=== PATIENT | female | born 1995 ===

== ENCOUNTER 2016-11-05 09:44 | Inpatient (IN) | payer MEDICAID, OTHER ==
[~2016-11-05] VITALS: Ht 152.4 cm; Wt 69.0 kg
[2016-11-05] VITALS (26 sets, daily range): BP systolic 104–153; BP diastolic 53–78
[2016-11-05] MEDS ORDERED: LR 1,000 ML IV SCH (09:55)
[2016-11-05] MEDS ORDERED: LR 1,000 ML IV ONE (10:30)
[2016-11-05] MEDS ORDERED: PRENTAB9 PO (10:32)
[2016-11-05] MEDS ORDERED: IRON50TA PO (10:32)
[2016-11-05 11:27] LABS: MEAN CORPUSCULAR HEMOGLOBIN 32.4 pg (27.0-33.0); MEAN CORPUSCULAR HGB CONC 34.4 g/dl (32.0-36.5); MEAN CORPUSCULAR VOLUME 94.2 fl (80.0-96.0); WHITE BLOOD COUNT 14.5 K/mm3 (4.0-10.0)
[2016-11-05] MEDS ORDERED: FENTANYL 2MCG/ML ROPIVACAINE 0.2% IN 0.9% NACL 200ML IVBAG As Ordered ONE (11:46)
[2016-11-05] MEDS ORDERED: EPIDURAL/PCA KEYS XX PRN (12:45)
[2016-11-05] MEDS ORDERED: diphenhydrAMINE INJ 50MG/ML VIAL (J1200) IV PRN (12:45)
[2016-11-05] MEDS ORDERED: ePHEDrine SULFATE 25 MG/5 ML(5MG/ML) SYRINGE IV PRN (12:45)
[2016-11-05] MEDS ORDERED: LACTATED RINGER'S 1000 ML IV PRN (12:45)
[2016-11-05] MEDS ORDERED: REFRIGERATOR IV KEYS XX PRN (12:45)
[2016-11-05] MEDS ORDERED: ONDANSETRON 4MG/2ML VIAL (J2405) IV PRN (12:45)
[2016-11-05] MEDS ORDERED: FENTANYL/ROPIVACAINE/NACL BAG 200 ML EPIDURAL SCH (12:45)
[2016-11-05] MEDS ORDERED: NALOXONE INJ 0.4 MG/1 ML VIAL (J2310) IV PRN (12:45)
[2016-11-05] MEDS ORDERED: EPIDURAL COMMENT XX SCH (12:45)
[2016-11-05] MEDS ORDERED: ACETAMINOPHEN 500 MG TAB PO ONE (19:00)
[2016-11-05] MEDS ORDERED: OXYTOCIN 30 UNITS IN 0.9% NaCl 500ML IV BAG (J2590) As Ordered ONE (19:15)
[2016-11-05] MEDS ORDERED: UNASYN 3 GM VIAL As Ordered ONE (20:21)
[2016-11-05 20:53] LABS: CORD GAS ABE A -7.8; CORD GAS HCO3 A 19.1 MEQ/L; CORD GAS O2 SAT A 56.6 %; CORD GAS PCO2 A 43.6 mmHg; CORD GAS PH A 7.259 UNITS; CORD GAS PO2 A 25.8 mmHg; CORD GAS SBC A 17.4 MEQ/L; CORD GAS TCO2 A 20.4 MEQ/L
[2016-11-05 20:56] LABS: CORD GAS ABE V -8.6; CORD GAS HCO3 V 19.7 MEQ/L; CORD GAS O2 SAT V 57.4 %; CORD GAS PCO2 V 51.1 mmHg; CORD GAS PH V 7.205 UNITS; CORD GAS PO2 V 27.4 mmHg; CORD GAS SBC V 16.8 MEQ/L; CORD GAS TCO2 V 21.3 MEQ/L
[2016-11-05] MEDS ORDERED: OXYTOCIN DRIP 30 UNITS in APPROPRIATE DILUENT 1 EA IV SCH (21:13)
[2016-11-05] MEDS ORDERED: ANUSOL HC CREAM 30GM TOP PRN (21:15)
[2016-11-05] MEDS ORDERED: METHYLERGONOVINE MALEATE 0.2 MG TAB PO PRN (21:15)
[2016-11-05] MEDS ORDERED: MEASLES,MUMPS,RUBELLA VACCINE INJ (MMR-II) (90707) SC SCH (21:15)
[2016-11-05] MEDS ORDERED: MOM 30ML SUSPENSION UDC PO PRN (21:15)
[2016-11-05] MEDS ORDERED: DIBUCAINE 1% OINTMENT 30GM TOP PRN (21:15)
[2016-11-05] MEDS ORDERED: ACETAMINOPHEN 500 MG TAB PO PRN (21:15)
[2016-11-05] MEDS ORDERED: RHOGAM 300 MCG (1500 IU) INJ (J2790) IM SCH (21:15)
[2016-11-05] MEDS ORDERED: DOCUSATE SODIUM 100 MG CAP PO PRN (21:15)
[2016-11-05] MEDS: IBUPROFEN 800 MG TAB PO PRN (22:21)
--- NOTE | 2016-11-05 22:55 | HPE ---
DATE OF ADMISSION: 11/05/2016 CHIEF COMPLAINT: Active labor. HISTORY OF THE PRESENT ILLNESS: The patient is a 21-year-old 1, para 0-0-0-1 at 39 weeks 6 days gestation with an estimated date of confinement of by last menstrual period of 01/31/2016. She presents from the office complaining of contractions that are about 1 to 2 minutes apart and very painful. They last 45 seconds to 1 minute, and she has been jr for 5 or 6 hours. She denies rupture of membranes. She states she is not really feeling the baby move. She admits to a little mucousy, bloody discharge. Last intercourse was a week ago. LABS: Blood type A negative. Blood pressures in the office have been ranging from 122 to 124 systolic over 68 to 70 diastolic. Total weight gain 46 pounds. GBS negative. Rubella immune. HIV negative. She has never had a Pap smear. Gonorrhea and chlamydia are both negative. Hepatitis B antigen negative. Hepatitis C nonreactive. VDRL nonreactive. 1-hour glucose tolerance test was 162, 3-hour glucose tolerance test showed 87/169/144/110. Obstetrical (OB) ultrasound from 10/22/2016 shows baby vertex. Previous ultrasound showed an anterior placenta with a male fetus. PAST OB HISTORY: None. PAST MEDICAL HISTORY: None. PAST SURGICAL HISTORY: None. MEDICATIONS: She is taking vitamins and iron supplements. ALLERGIES: None. SOCIAL HISTORY: The patient is single. Denies tobacco, alcohol or drug use. EXAM: Blood pressure 117/74. Abdomen: Baby is vertex. Vaginal Exam: She is 5 cm dilated, 100% effaced at -2 station. In office, she was 4 cm dilated, 100% effaced at -2 station. monitor shows 145 beats per minute with moderate variability and accelerations without decelerations. ASSESSMENT AND PLAN: 1. Intrauterine at 39 weeks and 6 days (39 and 6) in active labor. 2. Group B streptococcus (GBS) negative. 3. Anticipate spontaneous vaginal delivery. My preceptor for this patient encounter was Dr. Nona Redd. The preceptor was physically present in the building during the encounter and was fully available. As needed, all aspects of the patient interview, examination, medical decision making process, and medical care plan development were reviewed and approved by the preceptor. The preceptor is aware and concurs with the plan as stated in the body of this note and will attest to such by his/her cosignature.
[2016-11-06] MEDS ORDERED: miSOPROStol 200 MCG TAB (S0191) PR ONE
--- NOTE | 2016-11-06 00:09 | DN ---
DATE: 11/05/2016 TIME OF DELIVERY: 2038 hours. GENDER: Male. SCORES: 7 and 8. WEIGHT: 3128 grams or 6 pounds 14 ounces. LACERATIONS: None. ANESTHESIA: Epidural. COUNTS: Five laparotomy sponges accounted for prior to and after delivery. Two sharps removed from the delivery field. CORD GASES: 7.25, 7.20 with base excesses of -7.8 and -8.6 respectively. DELIVERY NOTE: On 11/05/2016, at 2038 hours, Ms. Rivers, a 21-year-old 1, para 1 had a spontaneous vaginal delivery of a liveborn male , scores 7 and 8, weight was 3128 grams or 6 pounds 14 ounces. Head was delivered BEAU over intact perineum, followed by delivery of left anterior shoulder and right posterior shoulder. Upon delivery of the corpus, terminal ileum was noted with thickly stained meconium amniotic fluid. Cord was clamped times two and was cut by the father of the baby. The baby was then taken over to the warmer for further assessment. Cord gases were then obtained. Placenta was then drained and delivered grossly intact. A premixed bag of 500 mL of saline with 30 units of Pitocin was then bolused along with uterine massage until the uterus was firm. An additional 1000 mcg of Misoprostol was placed rectally for uterine hemostasis. Estimated blood loss total: 500 mL. Upon inspection of the cervix, vagina and perineum were intact, hemostatic. Of note, shortly before delivery, the patient was formally diagnosed with chorioamnionitis and received a gram of Tylenol, as well as 3 grams of Unasyn. Diagnosis based on maternal tachycardia along with maternal temperature. Also of note, the was treated for meconium aspiration.
[2016-11-06 06:27] VITALS: BP 105/58
[2016-11-06] MEDS: IBUPROFEN 800 MG TAB PO PRN (07:50)
[2016-11-06] MEDS ORDERED: PRENATAL VITAMINS CHEWABLE TABLET PO SCH (09:00)
[2016-11-06] MEDS ORDERED: ACET50TA PO (09:08)
[2016-11-06] MEDS ORDERED: IBUP-1114 PO (09:09)
[2016-11-06] MEDS ORDERED: COLA100C5 PO (09:16)
[2016-11-06] MEDS ORDERED: MOM30SS PO (09:17)
[2016-11-07] MEDS ORDERED: ADACEL/BOOSTRIX VACCINE (DIPHTH/PERTUSS/ACELL/TETANUS)0.5ML SYR (90715) IM ONE (09:00)
== END 2016-11-06 10:52 | disposition home or self-care (01) | DRG 560 ==
LOC: M LDI 09:44 → M OBS 23:42
PROVIDERS: ADMIT Obstetrics & Gynecology; ATTEND Obstetrics & Gynecology
PROC: 10E0XZZ Delivery of Products of Conception, External Approach (ICD-10-PCS; principal; 2016-11-05)
DX: O41.1230 Chorioamnionitis, third trimester, not applicable or unspecified (principal); O77.0 Labor and delivery complicated by meconium in amniotic fluid; Z3A.39 39 weeks gestation of pregnancy; Z37.0 Single live birth